=== PATIENT | female | born 1950 | race African-American/Black ===

== ENCOUNTER 2016-10-26 13:26 | Outpatient (CLI) | payer MEDICAID ==
[~2016-10-26 13:26] MED LIST: NACL ONE
--- NOTE | 2016-10-26 16:33 | Mammography Report ---
BONE DENSITY STUDY: DEFINITIONS: BMD = Bone Mineral Density T-score = BMD related to mean peak bone mass of young adult (mean expressed in Standard Deviation) Z-score = Age matched BMD expressed in SD World Health Organization (WHO) Diagnostic Criteria Normal T-score > -1 SD Osteopenia T-score between -1 and -2.4 SD Osteoporosis T-score -2.5 SD or below FINDINGS: The weighted average BMD of lumbar spine L1-L4 is 0.667 with a T-score of -3.5. The weighted average BMD of hip is 0.552 with a T-score of -3.2. IMPRESSION: The patient's T-score is diagnostic for osteoporosis and high relative risk for fracture. NOTE: BMD is not the only risk factor for fracture; also consider factors such as the patient's age, risk of falling, previous osteoporotic fracture, family history of osteoporotic fractures, current smoker, and low body weight. Bocanegra's triangle is a region of interest in femur, predominantly of trabecular bone. It is not a true anatomic site, and [facility] does not recommend its use clinically.
== END 2016-10-26 13:27 | disposition home or self-care (01) ==
LOC: MAMMO 13:26
DX: M81.0 Age-related osteoporosis without current pathological fracture (principal)
CPT/HCPCS: 77080